=== PATIENT | female | born 1995 | race Caucasian/White ===

== ENCOUNTER → 2016-10-23 | Outpatient (CLI) | payer BC ==
--- NOTE | ~2016-10-23 | EE ---
Unit #: [id number] #: [id number] Patient: FERNANDA YING [id number] [address] [address] [id number] O MR#: [id number] NAME: FERNANDA YING : 1995 SEX: F STUDY DATE/TIME: 10/23/2016 UNIT: CEEG ROOM: STUDY DESCRIPTION: EEG Attending Physician: Tevin Rangel II., M.D. Primary Care Physician: No Primary Care Physician NEURODIAGNOSTICS REPORT EXAM EEG. REASON FOR STUDY Seizures. TECHNICAL INFORMATION This is a routine EEG performed using the standard international 10-20 system of electrode placement. Photic stimulation was performed. Hyperventilation was performed. REPORT Throughout the entire study, the best background rhythm seen was approximately 10 Hz. This rhythm is seen in both posterior head regions symmetrically and does attenuate to eye opening and closure. Photic stimulation was performed, which did not elicit any epileptiform abnormalities. Hyperventilation was also performed, which failed to reproduce any abnormal buildup. Throughout the entire study there were no electrographic seizures recorded, nor were there any discrete epileptiform abnormalities seen. INTERPRETATION This is a normal awake EEG. No sleep was recorded during the EEG. A normal EEG does not rule out the possibility of a seizure disorder. Clinical correlation is advised. Dictated by... Tevin Rangel II., M.D. GWS/[place] TD: 10/24/2016 16:23 JOB #: [id number] Unit #: [id number] #: [id number] Patient: FERNANDA YING NEURODIAGNOSTICS REPORT X NEURODIAGNOSTICS REPORT
== END | disposition home or self-care (01) ==
LOC: CEEG 09:12
DX: R68.89 Other general symptoms and signs (principal)
CPT/HCPCS: 95816